=== PATIENT | female | born 1935 | race Caucasian/White ===

== ENCOUNTER 2016-07-24 17:23 | Inpatient (IN) | payer MEDICARE, OTHER ==
--- NOTE | ~2016-07-24 | DS ---
Discharge Summary [facility] [address] [place]. [address] NAME: RANDA FONSECA : 35 STATUS : DIS IN PAT#: [id number] AGE: 81 ADM/REG DATE : 07/25/16 MR#: [id number] REPORT SERV DATE: 07/31/16 DICTATED BY: ZAIDA ALICEA DATE: 07/30/16 REPORT STATUS : Draft TRANSCRIBED BY: MODL DATE: 07/30/16 ADMISSION DATE: 07/25/2016 DISCHARGE DATE: 07/30/2016 PRINCIPAL DIAGNOSES: Unintentional chronic opioid overdose with chronic encephalopathy, adult failure to thrive in the setting of intractable chronic neck and back pain due to old compression fractures, also atrial fibrillation and urinary tract infection. HISTORY OF PRESENT ILLNESS: Please see Dr. Champagne's dictation from 07/24/2016. HOSPITAL COURSE: Admitted with a concern for stroke due to diminished level of consciousness. A CT had been negative. It was clear however the patient had not had a stroke as she was seen shortly after receiving narcotics, and she was found to be severely hypotensive with blood pressure in the 60s, pinpoint pupils, and a nonlateralizing exam. The patient received volume resuscitation. She did not require Narcan; however, it was clear she was unable to tolerate the current doses of her medications which were reduced, but resulted in severe pain. In neither case, was she able to eat very much food and delirium from pain would alternate from delirium from obtundation. She was seen by doctor, so efforts were made for nonopioid pain relief with things as Toradol, baclofen, these were also unsuccessful. The baclofen moreover did also make her very confused. She was seen by Dr. Bunn to try to find a happy medium pain control, this was not able to be accomplished. Long discussions were held with the family regarding expectations of care as she had already developed bed-bound status and extreme weight loss, it was felt that her prognosis was very poor. In any event, while efforts were made to titrate her dementia medications, adding Namenda and adding antidepressant, this was felt also to be too little, too late, and arrangements were made to transition her to home hospice with [facility], they accepted her into their program and she was released on 07/30/2016 in stable condition with diet as tolerated and activity as tolerated under the care of her family members with the following medications: Claritin, Zoloft, Benadryl, baclofen only 2.5 mg q.h.s., Aricept 10 mg q.h.s., Lyrica 50 mg q.h.s., Megace 400 mg daily, Namenda 10 mg daily, Percocet 2.5 mg one to two, Eliquis 2.5 mg b.i.d., Protonix, Macrobid had been completed. She will follow up with the physicians at [facility] on a p.r.n. basis. Greater than 30 minutes were spent in the care of this patient and discharge planning on discharge day. DEL/ANNA Zaida Alicea M.D. / [id number] CC: Discharge Summary [address] [address] NAME: RANDA FONSECA : 35 STATUS : DIS IN PAT#: [id number] AGE: 81 ADM/REG DATE : 07/25/16 MR#: [id number] REPORT SERV DATE: 07/31/16 DICTATED BY: ZAIDA ALICEA DATE: 07/30/16 REPORT STATUS : Draft TRANSCRIBED BY: ANNA DATE: 07/30/16 Zaida Alicea M.D. [facility]
--- NOTE | ~2016-07-24 | HP ---
History And Physical [place] [id number] [facility] [place]. [address] NAME: RANDA FONSECA : 35 STATUS : ADM IN [facility]#: [id number] AGE: 81 ADM/REG DATE : 07/25/16 MR#: [id number] REPORT SERV DATE: 07/25/16 DICTATED BY: RADHA SAENZ DATE: 07/25/16 REPORT STATUS : Draft TRANSCRIBED BY: MODAysha DATE: 07/25/16 DATE OF ADMISSION: 07/25/2016 CHIEF COMPLAINT: Weakness with decreased response x48 hours. HISTORY OF PRESENT ILLNESS: The patient is an 81-year-old female with chronic pain on chronic narcotics, recent admission for acute encephalopathy with UTI and what appears to be new diagnosis of atrial fibrillation, questionable heart failure, and additionally history of dementia and chronic debility, who presents today after having confusion, decreased responsiveness, and weakness over the last 24 to 48 hours. The patient is accompanied by two daughters at bedside, who reports that symptoms have been constant, moderate to severe, although the patient does respond to simple questioning. Is denying any pain or radiating symptoms. No chest pain, but has been having grossly weakness like all her energy has been zapped out. Denies any acute stroke-type symptoms per family. No asymmetric weakness, fever, chills, diarrhea, or shortness of breath. No nausea, vomiting, but has had decreased p.o. intake. The patient was reported to have new start of morphine by mouth, but this has been intermittently given by daughters for breakthrough pain and additionally has had decreased changes in p.o. medications. There are no worsening or relieving symptoms. Symptoms are still currently present and reproducible. REVIEW OF SYSTEMS: GENERAL: Noted for weakness, but no fever or chills. EYES: No visual changes or pain. ENT: No sore throat or congestion reported. NEURO: Does have mental status kind of changes and headaches. SKIN: No rashes or bruising. RESPIRATORY: No shortness of breath or cough. CV: Does have irregular rhythm. No chest pain. GI: No nausea or vomiting. : No current dysuria or hematuria. MUSCULOSKELETAL: Does have myalgias and arthralgias. ENDO: Increased fatigue. No polyuria. HEME: No bleeding or bruising. IMMUNOLOGIC: No rhinorrhea. PSYCH: No anxiety. Mild confusion. PAST MEDICAL HISTORY: Recent diagnosis of atrial fibrillation, history of questionable lymphoma not treated, history of hypertension, dementia, E coli, previously ESBL, most recently non ESBL, additional reflux, chronic pain. SURGERIES: Cholecystectomy, , and hysterectomy. ALLERGIES: CODEINE. FAMILY HISTORY: CHF, stroke, and endometrial cancer. History And Physical [address] [place]. [address] NAME: RANDA FONSECA : 35 STATUS : ADM IN [facility]#: [id number] AGE: 81 ADM/REG DATE : 07/25/16 MR#: [id number] REPORT SERV DATE: 07/25/16 DICTATED BY: RADHA SAENZ DATE: 07/25/16 REPORT STATUS : Draft TRANSCRIBED BY: ANNA DATE: 07/25/16 SOCIAL HISTORY: . Lives with daughter. Never smoked. No alcohol and no illicits. On chronic pain medications. EKG: Atrial fibrillation, rate of 87, QTc 493. HOME MEDICATIONS: Amlodipine, Halfpirin, Coreg, Aricept, Lasix, Prinivil, MS Contin, multivitamin liquid, Percocet, Klor-Con, and Lyrica. PHYSICAL EXAMINATION: VITAL SIGNS: Blood pressure 109/85 to 123/72, temperature 97.2, pulse 90, respirations 20, O2 saturations 97%. GENERAL: Elderly, frail. Mild temporal wasting. EYES: No scleral icterus, but does have right-sided asymmetric pupils to left, although both are reactive, right greater than left. ENT: Nares patent. Tongue midline. Dry mucous membranes. RESPIRATORY: Does have mild rhonchi in lower lung holland bilaterally. Decreased lung sounds. CV: Irregularly irregular. No pedal edema. No JVD. GI: Soft, nontender, nondistended. : Deferred. MUSCULOSKELETAL: Does move extremities, but does have muscle atrophy diffusely. SKIN: Pale. Mild tenting. LYMPH: No cervical or supraclavicular lymphadenopathy. HEME: No bleeding or bruising. NEURO: Alert to person, situation. Was initially nonverbal, but able to follow commands. Symmetrical strength in hands, but grossly weak. Gait not tested. Tongue midline. Symmetrical smile. Does have asymmetric pupils, right greater than left. Normal wrinkled brow. Normal vocal nino, but weak. PSYCH: Appropriate mood and affect. IMAGING: ABG initially presented pH 7.49, pCO2 of 40, PO2 of 87, bicarb 29.2. Urinalysis, large leukocyte esterase with wbc of 19. Portable chest, small right greater than left bilateral pleural effusions with present bibasilar atelectasis. Sodium 130, potassium 4.5, chloride 89, BUN and creatinine 7 and 0.65, CO2 of 32, calcium 9.5, glucose 103. LFTs within normal limits. Alkaline phosphatase 192, albumin 2.5. Troponin negative. BNP 161.3. WBC count 10.1, H and H 11.9 and 36.3, MCV 87.5, platelets 395. INR 1.1. CTA chest, negative PE. Subtle ground-glass opacities suggesting mild interstitial edema. Mild cardiomegaly. Mild fusiform aneurysmal changes. Thoracic aorta, ascending, 3.4 cm diameter. Subsegmental atelectasis, right middle lobe. Multisegment atelectasis, right middle lobe and left lower left lobe. Moderate left pleural effusion. Absent appearing spleen. Multilevel chronic-appearing insufficiencies. CT head done in the emergency room, no acute intracranial hemorrhage or mass effect. Intracranial arterial vascular calcifications are seen. Chronic atrophic changes and chronic micro ischemic white matter changes are seen. Small old infarct is noted in the right basal ganglia. No definite evidence of acute major vascular territory seen at this time, although early cerebral infarct may be CT oculate in the first 12 to 24 hours. Moderate amount of dependent fluid is noted in the right maxillary sinus and left sphenoid sinus most likely related to the History And Physical [address] [address] NAME: RANDA FONSECA : 35 STATUS : ADM IN PAT#: [id number] AGE: 81 ADM/REG DATE : 07/25/16 MR#: [id number] REPORT SERV DATE: 07/25/16 DICTATED BY: RADHA SAENZ DATE: 07/25/16 REPORT STATUS : Draft TRANSCRIBED BY: ANNA DATE: 07/25/16 areas of acute sinusitis. There is complete opacification of the right frontal sinus and almost complete opacification of the right ethmoid sinus air cells, which is almost likely related to sinusitis. ASSESSMENT AND PLAN: 1. Acute encephalopathy. 2. Recurrent urinary tract infections. 3. Protein-calorie malnutrition. 4. Chronic pain and narcotic dependence. 5. Recurrent hyponatremia. 6. Questionable congestive heart failure. 7. Hypertension. 8. Atelectasis. 9. Mild hypomagnesemia. 10.Atrial fibrillation. PLAN: 1. For acute encephalopathy, recurrent UTI history, hyponatremia, does have asymmetric pupils, CT ordered stat in the emergency room. No acute findings. However, we will run TIA-type protocol, although no additional acute findings. Encephalopathy appears to be slightly improving. Tongue midline. Symmetrical smile. Does have equal brow. Arm strength although grossly weak. We will initiate TIA non tPA protocol. Symptoms of weakness have been occurring for the last 48 hours, although this is likely secondary to possible UTI and mild electrolyte abnormality. We will have MRI and carotid ultrasound also completed. We will defer Neurology consult to a.m. team pending a.m. results. 2. Recurrent UTIs. Prior cultures noted for E coli, ESBL initially and repeat negative. Does have encephalopathy with hyponatremia. We will start Rocephin with normal wbc count. This is noted different than prior, but does have decreased urine output. The patient was given Lasix in the emergency room due to clinical findings of mild rales and atelectasis, but is also clinically volume depleted intravascularly with tenting and dry mucous membranes. We will need a delicate balance of fluids and close monitoring of urine output. 3. Protein-calorie malnutrition. Ensure with meals as long as passes swallow study for TIA protocol. 4. Chronic pain, narcotic dependence. Holding morphine. Discussed even discontinuation, as the patient recently started. Family has been given slightly p.r.n. instead of scheduled for breakthrough pain. 5. Repeat hyponatremia. Hold Lasix. Gentle IV fluids. Follow volume balance and treat UTI. 6. CHF. Recent increase in Lasix. BNP was noted at 700+ in clinic, is down to 161. However, no echo noted. No actual confirmation of this. We will order echo and carotid ultrasound for completeness and diagnosis of CHF. 7. Hypertension, on LILIANA inhibitor and CCB. Hold CCB. 8. Atelectasis. Negative PE. CT PE protocol ordered. Was reported to have elevated D- dimer in the emergency room. 9. Mild hypomagnesemia. Replace. History And Physical [facility] [address] [place]. [address] NAME: RANDA FONSECA : 35 STATUS : ADM IN PAT#: [id number] AGE: 81 ADM/REG DATE : 07/25/16 MR#: [id number] REPORT SERV DATE: 07/25/16 DICTATED BY: RADHA SAENZ DATE: 07/25/16 REPORT STATUS : Draft TRANSCRIBED BY: MODL DATE: 07/25/[address] Current CHADS-VASc is 4. If CHF confirmed, it will be 5. We will need to discuss anticoagulation additionally with new findings of likely positive CT with prior stroke history. Could be as high as [address] CHADS-VASc score. CT results have been discussed with the patient and family understanding plan and agreeable to current treatment. SALENAN/ANNA Radha Saenz MD / [id number] CC: Landen Agarwal M.D.
--- NOTE | ~2016-07-24 | CN ---
Consultation Report [facility] [address] [place]. [address] NAME: RANDA JOE : 35 STATUS : ADM IN PAT#: [id number] AGE: 81 ADM/REG DATE : 07/25/16 MR#: [id number] REPORT SERV DATE: 07/25/16 DICTATED BY: YOLETTE BUNN DATE: 07/25/16 REPORT STATUS : Draft TRANSCRIBED BY: MODL DATE: 07/25/16 PALLIATIVE CARE CONSULTATION DATE OF CONSULTATION: 07/25/2016 HISTORY OF PRESENT ILLNESS: Randa is an 81-year-old lady who was here a little while ago with encephalopathy and mental status changes, felt to be due to an ESBL urinary tract infection. She at that time was treated appropriately and discharged home, although her appetite at that time was somewhat limited. On admission now, she appears to be in atrial fibrillation with PVCs and/or aberrancies, impaired mental status, and was felt by Dr. Agarwal to be on the verge of a narcotic- induced arrest. The family reports that when you ask the patient who has a history of dementia and chronic debility if she has pain, she typically denies it; however, she asks for pain medications on a chronic basis due to her problems as listed below. We were asked to see her with regard to supportive outpatient management and care as well as establishment of goals of care. 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 She has not had surgical intervention for that. PAST SURGICAL HISTORY: Include a cholecystectomy, C-sections, hysterectomy, and bladder repair/bladder suspension surgery. ALLERGIES: LISTED CODEINE. PLEASE NOTE FOR THE RECORD THE FAMILY BASED UPON PREVIOUS EXPERIENCE WITH HOSPICE ON THEIR FATHER ARE EXTREMELY ADVERSE TO THE USE OF MORPHINE. THE PATIENT WAS RECENTLY PLACED ON LONG-ACTING MORPHINE, WHICH THEY BELIEVE IS THE REASON WHY SHE IS NOW ADMITTED. FAMILY HISTORY: Includes congestive heart failure, strokes, and endometrial cancer. SOCIAL HISTORY: She is . She lives with one of four daughters. Nonsmoker. Nondrinker. No illicit drugs, and she has been on pain medications for over three decades. The patient has been diagnosed with dementia, and in fact, the addition of Aricept was responsible for a significant improvement in both cognition and behavior. REVIEW OF SYSTEMS: Includes weight loss; poor appetite, which is somewhat labile; decreasing hearing; urinary incontinence, which is positional and that the patient tries to get up and actually urinates at that point. She has had some fecal incontinence issues as well. She has ongoing muscle Consultation Report [place] [address] [place]. [address] NAME: RANDA JOE : 35 STATUS : ADM IN PAT#: [id number] AGE: 81 ADM/REG DATE : 07/25/16 MR#: [id number] REPORT SERV DATE: 07/25/16 DICTATED BY: YOLETTE BUNN DATE: 07/25/16 REPORT STATUS : Draft TRANSCRIBED BY: ANNA DATE: 07/25/16 pain, back pain, neck pain, and some complaints of headaches. She has memory problems and some cognition issues, although she is interactive with her family when she is feeling well and in fact has been seen laughing and joking with them in the not too distant past. Goals and desires include improve quality of life, more alertness, and improved appetite. She is currently full code. PHYSICAL EXAMINATION: Today shows an easily arousable but lady who doses off to sleep intermittently. VITAL SIGNS: Her blood pressure is 99/57, pulse is 62, and at this point on the monitor, she appears to be in sinus rhythm, although she does have documented atrial fibrillation episodes. The patient does not really answering questions at this time. On 3 L of oxygen, her pulse ox is 96%, her BMI is 16.7, and respiratory rate 16 and not labored, although one daughter notes that she does have some apnea periods. GENERAL: We have a drowsy thin arousable lady who is lying in bed. HEENT: She appears to be somewhat hard of hearing and her daughters do raise their voice in order to get her to turn to their name to the voice. The patient does do this. Her pupils are equal, 4 mm, and sluggish. HEART: Shows a regular rate and rhythm with what looks like some ectopy. She has a 2 to 3 over 6 systolic ejection murmur, which is not new. LUNGS: Clear, not labored, with good expansion. GASTROINTESTINAL: Bowel sounds are present. Nontender diarrheal stools x1 today. A Jane catheter is in place here, but not at home. EXTREMITIES: She evidently moves all of her extremities sluggishly, but does do so. NEUROLOGIC: She does follow some commands but not in a consistent fashion. She is oriented x2 while awake, and she does interact with her family intermittently. PSYCHIATRIC: Affect unable to be assessed. SKIN: Intact grossly. No obvious rashes, breakdown, or decubitus are identified. IMPRESSION, PLAN, AND DISCUSSION: Mrs. Joe is an 81-year-old lady with chronic long-term pain issues, who has been under pain management for six or seven years, the medications may not be keeping up with her progressive other symptoms in terms of her dementia and other issues. She is bedridden for the most part, which is complicating her pain management. The family was questioned as to their desires and goals, and they appeared to be fairly well aligned and congruent in that her quality of life is the primary goal. I have begun to introduce the concept of resuscitation questions. In addition, we will plan on seeing her in the office for outpatient followup, but I am going to begin her on a low dose of baclofen as I think that some of her problems may in fact be muscle spasm and I am hoping to get a little bit less sedation them with narcotics. I have explained the importance of only making one medication change at a time to the family and they are agreeable to pursuing this. We appreciate the opportunity to see the patient in consultation. A total of 85 minutes was Consultation Report [address] [place]. [address] NAME: RANDA JOE : 35 STATUS : ADM IN [facility]#: [id number] AGE: 81 ADM/REG DATE : 07/25/16 MR#: [id number] REPORT SERV DATE: 07/25/16 DICTATED BY: YOLETTE BUNN DATE: 07/25/16 REPORT STATUS : Draft TRANSCRIBED BY: ANNA DATE: 07/25/16 spent between the patient's review, second interview with the family, and chart review and preparation of this report. GABRIELLE/ANNA Yolette Bunn M.D. / [id number] CC: Landen Agarwal M.D. UNKNOWN
[2016-07-24 17:10] LABS: BE (BASE EXCESS) 5.5 MEQ/L (0 +/- 2.5); CARBOXYHEMOGLOBIN 1.7 % (0-3); HCO3 (ACTUAL BICARBONATE) 29.2 MEQ/L (23-27); HEMOBLOGIN CONTENT 13.2 G/DL (12-16); INSTRUMENT SERIAL # 8087; METHEMOGLOBIN 0.2 % (0-3); O2 CONTENT 17.7 VOL% (18-24); OPERATOR ID 14335; PCO2 (CO2 TENSION) 40 MMHG (35-45); PO2 (O2 TENSION) 87 MMHG (79-93); SAMPLE Arterial; pH 7.49 (7.37-7.43)
[2016-07-24 17:11] LABS: ALLENS TEST Pos
[2016-07-24 17:11] LABS: BASOPHILS 0.7 %; BASOPHILS ABSOLUTE 0.07 10/3/uL (0.0-0.16); EOSINOPHILS 7.6 %; EOSINOPHILS ABSOLUTE 0.77 10/3/uL (0.0-0.53); ER CBC TAT 0 Hrs 07 Mins; HEMATOCRIT 36.3 % (36.0-48.0); HEMOGLOBIN 11.9 g/dL (12.0-16.0); IMMATURE GRANULOCYTES 0.3 %; IMMATURE GRANULOCYTES ABSOLUTE 0.03 10/3/uL (0.0-0.11); LYMPHOCYTES 16.2 %; LYMPHOCYTES ABSOLUTE 1.63 10/3/uL (0.67-4.30); MANUAL DIFF NO %; MEAN CORPUS HGB CONC 32.8 g/dL (32.0-36.0); MEAN CORPUSCULAR HEMOGLOB 28.7 pg (26.0-34.0); MEAN CORPUSCULAR VOLUME 87.5 fL (80-100); MEAN PLATELET VOLUME 9.7 fL (9.2-13.0); MONOCYTES 12.8 %; MONOCYTES ABSOLUTE 1.29 10/3/uL (0.21-1.20); NEUTROPHILS 62.4 %; NEUTROPHILS ABSOLUTE 6.29 10/3/uL (2.02-8.40); PLATELET COUNT 395 10/3/uL (150-400); RBC DISTRIBUTION WIDTH 16.4 % (12.0-16.0); RED CELL COUNT 4.15 10/6/uL (4.0-5.6); WHITE BLOOD CELLS 10.1 10/3/uL (4.5-10.5)
[2016-07-24 17:13] LABS: ASCORBIC ACID (UR NOT ORDER) NEG (NEG); BILIRUBIN, URINE NEGATIVE (NEG); ER URINALYSIS TAT 0 Hrs 09 Mins; KETONE, URINE NEGATIVE (NEG); LEUKOCYTE ESTERASE(NOT OR LARGE (NEG); WBC (NOT ORDERED) (RFLEX) 19 (0-5)
[2016-07-24 17:14] LABS: NITRITE (URINE) NEG (NEG)
[~2016-07-24 17:23] MED LIST: AMIT100 PO; ARICEPT10 PO; ASAB PO; CEFT5 PO; DURA75 TOP; HALF81 PO; I40 PO; LOTREL1 CAP PO; LYRICA50 PO; MOBIC15 MG PO; NEUR100 PO; NEXIUM20 M1 PO; PEP20 PO; PERCOCET1 TA4 PO; PREM45 PO; PRIN10 PO; PRIN20 PO; SEPTRA1 TAB PO; VITAMIN D1000 UNI1; VITAMIN D31000 UNIT PO
[2016-07-24 17:29] LABS: ALBUMIN 2.5 G/DL (3.5-5.0); BUN (BLOOD UREA NITROGEN) 7 MG/DL (6-23); CHEST PAIN PROFILE TAT 0 Hrs 25 Mins; CREATININE 0.65 MG/DL (0.55-1.02); GFR AFRICAN AMERICAN 97 ML/MIN (>=60); GFR NON AFRICAN AMERICAN 83 ML/MIN (>=60); GLUCOSE, SERUM 103 MG/DL (60-99); SGPT(ALT) 12 U/L (5-65); SODIUM, SERUM 130 MMOL/L (135-148); TOTAL BILIRUBIN 0.4 MG/DL (0-1.2); TOTAL PROTEIN 7.4 G/DL (6.0-8.5); TROPONIN I 0.02 NG/ML (<0.05)
[2016-07-24 17:31] LABS: ALKALINE PHOSPHATASE 192 U/L (45-117); CALCIUM, SERUM 9.5 MG/DL (8.5-10.4); CHLORIDE, SERUM 89 MMOL/L (96-112); CO2 (CARBON DIOXIDE) 32 MMOL/L (24-34); DIRECT BILIRUBIN < 0.1 MG/DL (0.0-0.4); INDIRECT BILIRUBIN(NOT ORDER) 0.3 MG/DL (0.1-0.9); POTASSIUM, SERUM 4.5 MMOL/L (3.5-5.3); SGOT(AST) 28 U/L (5-40)
[2016-07-24] MEDS ORDERED: HALF81 PO (17:38)
[2016-07-24] MEDS ORDERED: LYRICA50 PO (17:39)
[2016-07-24] MEDS ORDERED: PERCOCET 10/3251 TAB PO (17:39)
[2016-07-24] MEDS ORDERED: KLOR-CON 1010 MEQ PO (17:39)
[2016-07-24] MEDS ORDERED: ARICEPT10 PO (17:39)
[2016-07-24] MEDS ORDERED: NORV25 PO (17:39)
[2016-07-24] MEDS ORDERED: COREG3 PO (17:40)
[2016-07-24] MEDS ORDERED: PRIN20 PO (17:40)
[2016-07-24] MEDS ORDERED: L20 PO (17:41)
[2016-07-24] MEDS ORDERED: MSCONT15 PO (17:42)
[2016-07-24] MEDS ORDERED: ELDERTONIC PO (17:42)
[2016-07-24 18:22] LABS: INTERNATIONAL NORMAL RATI 1.1 UNITS (-); PARTIAL THROMBO TIME 25.9 SEC (22.5-37.2); PROTIME (NOT ORD) 13.9 SEC (12.0-14.5)
[2016-07-24 18:25] LABS: D-DIMER QUANTITATIVE 1.76 ug/mLFEU (< 0.50)
[2016-07-25 04:11] LABS: BASOPHILS 0.3 %; BASOPHILS ABSOLUTE 0.03 10/3/uL (0.0-0.16); EOSINOPHILS 0.5 %; EOSINOPHILS ABSOLUTE 0.06 10/3/uL (0.0-0.53); HEMOGLOBIN 13.2 g/dL (12.0-16.0); IMMATURE GRANULOCYTES 0.3 %; IMMATURE GRANULOCYTES ABSOLUTE 0.03 10/3/uL (0.0-0.11); LYMPHOCYTES 11.8 %; LYMPHOCYTES ABSOLUTE 1.42 10/3/uL (0.67-4.30); MEAN CORPUS HGB CONC 32.6 g/dL (32.0-36.0); MEAN CORPUSCULAR HEMOGLOB 28.5 pg (26.0-34.0); MEAN CORPUSCULAR VOLUME 87.5 fL (80-100); MEAN PLATELET VOLUME 9.7 fL (9.2-13.0); MONOCYTES 11.4 %; MONOCYTES ABSOLUTE 1.37 10/3/uL (0.21-1.20); NEUTROPHILS 75.7 %; NEUTROPHILS ABSOLUTE 9.08 10/3/uL (2.02-8.40); PLATELET COUNT 456 10/3/uL (150-400); RBC DISTRIBUTION WIDTH 15.9 % (12.0-16.0); RED CELL COUNT 4.63 10/6/uL (4.0-5.6)
[2016-07-25 04:12] LABS: HEMATOCRIT 40.5 % (36.0-48.0); MANUAL DIFF NO %
[2016-07-25 04:18] LABS: INTERNATIONAL NORMAL RATI 1.1 UNITS (-); PARTIAL THROMBO TIME 25.8 SEC (22.5-37.2); PROTIME (NOT ORD) 13.8 SEC (12.0-14.5)
[2016-07-25 06:11] LABS: A/G RATIO 0.5 (0.7-1.9); ALBUMIN 2.1 G/DL (3.5-5.0); CALCIUM, SERUM 9.1 MG/DL (8.5-10.4); CHLORIDE, SERUM 87 MMOL/L (96-112); CO2 (CARBON DIOXIDE) 34 MMOL/L (24-34); CPK 17 U/L (0-200); CREATININE 0.71 MG/DL (0.55-1.02); GFR AFRICAN AMERICAN 93 ML/MIN (>=60); GFR NON AFRICAN AMERICAN 80 ML/MIN (>=60); GLOBULIN 4.1 G/DL (2.5-4.1); HDL CHOLESTEROL 23 MG/DL (> 49); PHOSPHORUS, SERUM 4.5 MG/DL (2.5-4.5); POTASSIUM, SERUM 3.9 MMOL/L (3.5-5.3); SGOT(AST) 14 U/L (5-40); SGPT(ALT) 7 U/L (5-65); SODIUM, SERUM 129 MMOL/L (135-148); TOTAL BILIRUBIN 0.3 MG/DL (0-1.2); TOTAL PROTEIN 6.2 G/DL (6.0-8.5); TROPONIN I 0.02 NG/ML (<0.05)
[2016-07-25 06:13] LABS: ALKALINE PHOSPHATASE 158 U/L (45-117); BUN (BLOOD UREA NITROGEN) 11 MG/DL (6-23); CHOL/HDL RATIO(NOT ORDER) 5.3 (0-5); CHOLESTEROL 122 MG/DL (< 200); CK-MB 0.8 NG/ML; FOLATE 5.2 NG/ML (>5.2); GLUCOSE, SERUM 131 MG/DL (60-99); LDL CHOLESTEROL 78 MG/DL (< 130); NON-HDL CHOLESTEROL 99 MG/DL (< 160); TRIGLYCERIDE 109 MG/DL (< 150)
[2016-07-25 06:56] LABS: PROCALCITONIN 0.08 ng/mL (<0.5)
[2016-07-25 11:27] LABS: GLYCOHEMOGLOBIN (HbA1c) 6.1 % (4.7-6.1)
[2016-07-25 13:39] LABS: CPK 18 U/L (0-200); TROPONIN I 0.02 NG/ML (<0.05)
[2016-07-25 13:40] LABS: CK-MB 1.1 NG/ML
[2016-07-25 21:22] LABS: CPK 27 U/L (0-200); TROPONIN I 0.02 NG/ML (<0.05)
[2016-07-25 21:23] LABS: CK-MB 1.4 NG/ML
[2016-07-26 06:51] LABS: CALCIUM, SERUM 8.9 MG/DL (8.5-10.4); CHLORIDE, SERUM 96 MMOL/L (96-112); CO2 (CARBON DIOXIDE) 33 MMOL/L (24-34); CREATININE 0.58 MG/DL (0.55-1.02); GFR AFRICAN AMERICAN 100 ML/MIN (>=60); GFR NON AFRICAN AMERICAN 86 ML/MIN (>=60); POTASSIUM, SERUM 3.5 MMOL/L (3.5-5.3); SODIUM, SERUM 135 MMOL/L (135-148)
[2016-07-26 06:52] LABS: BUN (BLOOD UREA NITROGEN) 7 MG/DL (6-23); GLUCOSE, SERUM 100 MG/DL (60-99)
[2016-07-27 08:42] LABS: ALLENS TEST Pos; CARBOXYHEMOGLOBIN 1.2 % (0-3); DEVICE NC; HCO3 (ACTUAL BICARBONATE) 26.8 MEQ/L (23-27); INSTRUMENT SERIAL # 8083; METHEMOGLOBIN 0.2 % (0-3); O2 CONTENT 17.6 VOL% (18-24); PCO2 (CO2 TENSION) 31 MMHG (35-45); PO2 (O2 TENSION) 87 MMHG (79-93); SAMPLE Arterial; pH 7.56 (7.37-7.43)
[2016-07-30 05:25] LABS: BASOPHILS 0.6 %; BASOPHILS ABSOLUTE 0.07 10/3/uL (0.0-0.16); EOSINOPHILS 3.6 %; EOSINOPHILS ABSOLUTE 0.46 10/3/uL (0.0-0.53); HEMOGLOBIN 11.7 g/dL (12.0-16.0); IMMATURE GRANULOCYTES 0.3 %; IMMATURE GRANULOCYTES ABSOLUTE 0.04 10/3/uL (0.0-0.11); LYMPHOCYTES 14.6 %; LYMPHOCYTES ABSOLUTE 1.85 10/3/uL (0.67-4.30); MEAN CORPUS HGB CONC 32.6 g/dL (32.0-36.0); MEAN CORPUSCULAR HEMOGLOB 28.3 pg (26.0-34.0); MEAN CORPUSCULAR VOLUME 86.7 fL (80-100); MEAN PLATELET VOLUME 10.5 fL (9.2-13.0); MONOCYTES 11.4 %; MONOCYTES ABSOLUTE 1.44 10/3/uL (0.21-1.20); NEUTROPHILS 69.5 %; NEUTROPHILS ABSOLUTE 8.77 10/3/uL (2.02-8.40); PLATELET COUNT 432 10/3/uL (150-400); RBC DISTRIBUTION WIDTH 16.4 % (12.0-16.0); RED CELL COUNT 4.14 10/6/uL (4.0-5.6); WHITE BLOOD CELLS 12.6 10/3/uL (4.5-10.5)
[2016-07-30 05:27] LABS: HEMATOCRIT 35.9 % (36.0-48.0); MANUAL DIFF NO %
== END 2016-07-30 16:18 | disposition hospice, home (50) | DRG 917 ==
LOC: ER 17:23 → 1SO 07-25 00:12
PROVIDERS: Emergency Medicine; Internal Medicine
DX: T40.2X1A Poisoning by other opioids, accidental (unintentional), initial encounter (principal); G92 Toxic encephalopathy; J90 Pleural effusion, not elsewhere classified; I50.33 Acute on chronic diastolic (congestive) heart failure; E44.0 Moderate protein-calorie malnutrition; I95.9 Hypotension, unspecified; N39.0 Urinary tract infection, site not specified; I11.0 Hypertensive heart disease with heart failure; F03.90 Unspecified dementia, unspecified severity, without behavioral disturbance, psychotic disturbance, mood disturbance, and anxiety; E87.1 Hypo-osmolality and hyponatremia; J98.11 Atelectasis; Z68.1 Body mass index [BMI] 19.9 or less, adult; Z66 Do not resuscitate; Z51.5 Encounter for palliative care; E83.42 Hypomagnesemia; I49.3 Ventricular premature depolarization; B96.20 Unspecified Escherichia coli [E. coli] as the cause of diseases classified elsewhere; I48.91 Unspecified atrial fibrillation; M41.9 Scoliosis, unspecified; R62.7 Adult failure to thrive; G89.29 Other chronic pain; M54.2 Cervicalgia; M54.9 Dorsalgia, unspecified; R15.9 Full incontinence of feces; Z79.82 Long term (current) use of aspirin; Z79.891 Long term (current) use of opiate analgesic; Z79.899 Other long term (current) drug therapy; Z74.01 Bed confinement status; Z87.440 Personal history of urinary (tract) infections; Z88.5 Allergy status to narcotic agent
CPT/HCPCS: 36600; 70450; 71010; 71275; 80048; 80053; 80061; 80076; 81001; 82140; 82330; 82533; 82550; 82553; 82607; 82746; 82803; 82805; 82947; 82962; 83036; 83690; 83735; 83880; 84100; 84132; 84145; 84295; 84443; 84484; 85014; 85025; 85379; 85610; 85730; 87040; 87077; 87086; 87186; 92610-GN; 93005; 96374; 99285; A9270-GY; C8929; G8996-CJ-GN; G8997-CJ-GN; G8998-CJ-GN; J0360; J1885; J3475; Q9957; Q9967

== ENCOUNTER 2016-08-12 10:29 | Inpatient (IN) | payer MEDICARE, OTHER ==
--- NOTE | ~2016-08-12 | HP ---
History And Physical [id number] [facility] [place]. [address] NAME: RANDA JOE : 35 STATUS : DIS IN PAT#: [id number] AGE: 81 ADM/REG DATE : 08/12/16 MR#: [id number] REPORT SERV DATE: 08/30/16 DICTATED BY: RACH ORONA DATE: 08/12/16 REPORT STATUS : Draft TRANSCRIBED BY: MODL DATE: 08/12/16 DATE OF ADMISSION: 08/12/2016 TIME: 1100 hours. Seen in bed #7 at [facility]U. HISTORY OF PRESENT ILLNESS: Ms. Joe is an 81-year-old female with known advanced lung disease, who had major difficulties breathing last night and sit straight up in order to continue breathing. Her family brought her to the emergency room this morning where she required immediate intubation, mechanical ventilation despite being on hospice and DNR status. The patient now arrives. During her travel over to [facility] from [facility], she had a period of hypotension which was treated with saline bolus which corrected it. Currently, when she arrived, she had been sedated, chemically paralyzed on propofol and fentanyl. PAST MEDICAL HISTORY: Significant for history of atrial fibrillation. In the past, questionable history of non-Hodgkin lymphoma. She was treated once according to her family. History of hypertension, dementia, E. coli, previous ESBL, most recently E. coli ESBL, in addition to E.coli. She is status post cholecystectomy, , hysterectomy, splenectomy and multiple back fractures. ALLERGIES: SHE IS ALLERGIC TO CODEINE. FAMILY HISTORY: CHF, stroke, and endometrial cancer. HOME MEDICATIONS: Include OxyContin, aspirin, amlodipine, Coreg, Aricept, Lasix, Prinivil, MS Contin, multivitamin liquid, Lyrica, and Percocet. REVIEW OF SYSTEMS: Significant for as mentioned above as well as the onset of dementia thought to be Alzheimer's and a history of previous strokes in the past. PHYSICAL EXAMINATION: VITAL SIGNS: Currently, blood pressure is 154/71, pulse is 81 and irregular, afebrile, and orally intubated. HEENT: Head is normocephalic, thin-appearing female. NECK: Supple. Slight JVD. Orally intubated. CHEST: Decreased breath sounds. No rhonchi bilaterally. CARDIAC: S1 and S2. Irregular. PMI is displaced laterally. ABDOMEN: Scaphoid. Nontender. Multiple scars from previous surgeries. No organomegaly. EXTREMITIES: Slight cyanosis of knees. Pulses are palpable. Slight edema. NEUROLOGIC: Exam could not be tested at this point in time because she is still sedated and has chemical paralysis on board. Pupils are slightly equal and reactive. LABORATORY DATA: Lab data from the ER showed sodium 126, potassium 5.0, chloride 94, CO2 of 26, BUN 15, creatinine 0.6, total protein 5.3, albumin 2.4, alkaline phosphatase 129, ALT 10, AST 25, total bilirubin 0.4. Magnesium 1.5. H and H 10.5 and 32.9, white count 12,700, History And Physical [id number] [place]. [address] NAME: RANDA JOE : 35 STATUS : DIS IN PAT#: [id number] AGE: 81 ADM/REG DATE : 08/12/16 MR#: [id number] REPORT SERV DATE: 08/30/16 DICTATED BY: RACH ORONA DATE: 08/12/16 REPORT STATUS : Draft TRANSCRIBED BY: MODL DATE: 08/12/16 and platelet count 676,000. INR is 1.1. PTT 29. BNP 44. Blood gases show pH 7.29, pCO2 of 50, and pO2 of 278. Lactic acid 2.9. Chest x-ray is pending. EKG shows atrial fibrillation with slow ventricular rate. IMPRESSION: 1. Acute hypercapnic hypoxic respiratory failure. 2. Possible congestive heart failure. 3. Weight loss. 4. Chronic obstructive pulmonary disease, oxygen dependent. 5. Dementia. 6. Atrial fibrillation. 7. History of previous extended-spectrum beta-lactamase urinary tract infection. PLAN: We will discuss with her daughter. The patient wants to be resuscitated, but no chest compressions. Apparently, this is still open for discussion with the family. Would not be on prolonged life support. The plan will be to correct respiratory abnormalities in an attempt to wean the ventilator. Of note, the patient was here approximately 2 weeks ago for similar issues. FEDERICO/ANNA Rach Orona M.D. / [id number] CC: Rach Orona M.D. UNKNOWN
--- NOTE | ~2016-08-12 | IDS ---
Interim Discharge Summary [facility] [address] [place]. [address] NAME: RANDA FONSECA : 35 STATUS : ADM IN [facility]#: [id number] AGE: 81 ADM/REG DATE : 08/12/16 MR#: [id number] REPORT SERV DATE: 08/24/16 DICTATED BY: RACH KHAN DATE: 08/24/16 REPORT STATUS : Draft TRANSCRIBED BY: MODL DATE: 08/24/16 ADMISSION DATE: 08/12/2016 DISCHARGE DATE: DATE OF SUMMARY: 08/24/2016. The patient has COPD, advanced to hypoxic respiratory failure, probable ventilator- associated pneumonia. Previously had MRSA and Escherichia coli, ESBL pneumonia, atrial fibrillation and RVR, type 2 diabetes mellitus, chronic pain and dementia. Past medical history is significant for non-Hodgkin lymphoma. The patient was off antibiotics, doing well this morning, developed temperatures of 102 axillary, antibiotics restarted after cultures being done. The patient was unable to be weaned from the ventilator. Discussions with family regarding end of life issues. Currently, her laboratories show new infiltrates on chest x-ray. Electrolytes show sodium 145, potassium 3.2, chloride 112, CO2 of 26, BUN 33, creatinine 0.41, glucose was 50, this has been corrected. We will hold Levemir. Magnesium 2.4, phosphorus 2.0. CBC shows an H and H of 8.4 and 26.8, white count 19,700, with 82 polys, 5 bands, platelets 676,000. RP/MODL Rach Khan M.D. / [id number] CC: Sandy Zaidi BRADLEY K
--- NOTE | ~2016-08-12 | CN ---
Consultation Report [facility] [address] [facility] [place]. [address] NAME: RANDA JOE : 35 STATUS : ADM IN [facility]#: [id number] AGE: 81 ADM/REG DATE : 08/12/16 MR#: [id number] REPORT SERV DATE: 08/14/16 DICTATED BY: RUSTY DE LA CRUZ III DATE: 08/14/16 REPORT STATUS : Draft TRANSCRIBED BY: MODAysha DATE: 08/14/16 CONSULTATION DATE OF CONSULTATION: 08/13/2016 REASON FOR CONSULTATION: History of lymphoma. HISTORY OF PRESENT ILLNESS: Ms. Joe is an 81-year-old female with a history of lung disease and history of lymphoma who presented to the emergency room with shortness of breath and required immediate intubation and ventilation. She was admitted to medical ICU for further care and treatment for a healthcare associated pneumonia. It was noted that she has a history of lymphoma with records at [facility]. PAST MEDICAL HISTORY: 1. Atrial fibrillation. 2. History of non-Hodgkin lymphoma. 3. Hypertension. 4. Dementia. ALLERGIES: SHE IS ALLERGIC TO CODEINE. FAMILY HISTORY: Significant for CHF, stroke, and endometrial cancer. HOME MEDICATIONS: Her home medication list per the home med list was reviewed. REVIEW OF SYSTEMS: Unable to be obtained secondary to currently being intubated. PHYSICAL EXAMINATION: GENERAL: She is elderly, in no distress, sedated, and on the ventilator. CARDIOVASCULAR: Regular rate and rhythm with a murmur. There is no peripheral edema. LUNGS: With wheezes and crackles diffusely, vent support. ABDOMEN: Soft and nondistended without any hepatosplenomegaly. SKIN: Warm and dry with good skin turgor. There is no significant ecchymosis or petechiae. IMAGING: CT of her chest was reviewed. There are not any pathologically enlarged lymph nodes noted. ASSESSMENT AND PLAN: History of non-Hodgkin lymphoma. I did discuss with one of the oncologists at [facility]. 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 There was no record of any treatment being given at that time or any followup since then. Therefore, I doubt that this lymphoma will significantly impact her current prognosis especially given her recent CT findings of no significant mediastinal lymph node enlargement. Please call with any questions. Consultation Report [facility] [address] [place]. [address] NAME: RANDA JOE : 35 STATUS : ADM IN PAT#: [id number] AGE: 81 ADM/REG DATE : 08/12/16 MR#: [id number] REPORT SERV DATE: 08/14/16 DICTATED BY: RUSTY DE LA CRUZ III DATE: 08/14/16 REPORT STATUS : Draft TRANSCRIBED BY: MODL DATE: 08/14/16 [facility]/ANNA Rusty De La Cruz III, M.D. / [id number] CC: Sandy Zaidi BRADLEY K
--- NOTE | ~2016-08-12 | IDS ---
Interim Discharge Summary [facility] [address] [place]. [address] NAME: RANDA FONSECA : 35 STATUS : ADM IN PAT#: [id number] AGE: 81 ADM/REG DATE : 08/12/16 MR#: [id number] REPORT SERV DATE: 08/17/16 DICTATED BY: HARI RAYMUNDO DATE: 08/17/16 REPORT STATUS : Draft TRANSCRIBED BY: MODAysha DATE: 08/17/16 ADMISSION DATE: 08/12/2016 DISCHARGE DATE: INTERIM DIAGNOSES: 1. Acute hypoxic respiratory failure. 2. methicillin-resistant Staphylococcus aureus, and Extended-Spectrum Beta-Lactamase Escherichia coli pneumonia. 3. Hypoalbuminemia. 4. History of lymphoma. 5. Atrial fibrillation, rate controlled. 6. Previous urinary tract infection. 7. Dementia. 8. Mild aortic stenosis, and mild aortic regurgitation, with normal ejection fraction. 9. Funguria. DESCRIPTION: The patient was admitted on 08/12/2016. This is her third hospitalization since the end of May of this year. She has history of dementia, non-Hodgkin's lymphoma, previous UTI, hypertension, and atrial fibrillation. The patient was admitted for shortness of breath and required intubation in our emergency room on 08/12/2016. She has been on mechanical ventilation ever since then. It appears that the patient developed pneumonia which grew out ESBL E coli and MRSA on her sputum cultures. Her blood cultures today are unremarkable. She is on vancomycin and Merrem. She has been afebrile over the past 24 hours. She is currently on daily spontaneous breathing trials to work toward extubation. The family had said that someone told her, that is the patient, that she has heart failure. However, an echocardiogram that was done on 07/26/2016, shows normal ejection fraction of 60% to 65%, with normal chamber size of the left ventricle and right ventricle. She did have trivial valvular disease with mild aortic stenosis, with mild aortic regurgitation, and mild tricuspid regurgitation. She also has a history of lymphoma that she has not seen an oncologist in quite some time and the family was unsure who her doctor was. I did have Oncology come by just because of the question of the status of this. 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 It was decided that we can get her through this ICU admission and they can follow her as a new patient as an outpatient. She has been atrial fibrillation on this admission, but has been rate controlled without much issues. She is currently on some Precedex and fentanyl for sedation, which I had been lightening up to help with extubation. Family has been updated frequently on the patient's status. CEP/MODL Hari Raymundo DO Interim Discharge Summary [address] [address] NAME: RANDA FONSECA : 35 STATUS : ADM IN PAT#: [id number] AGE: 81 ADM/REG DATE : 08/12/16 MR#: [id number] REPORT SERV DATE: 08/17/16 DICTATED BY: HARI RAYMUNDO DATE: 08/17/16 REPORT STATUS : Draft TRANSCRIBED BY: MODL DATE: 08/17/16 / [id number] CC: Sandy Zaidi BRADLEY K
--- NOTE | ~2016-08-12 | DS ---
Discharge Summary [facility] [id number] [place]. [address] NAME: RANDA FONSECA : 35 STATUS : DIS IN PAT#: [id number] AGE: 81 ADM/REG DATE : 08/12/16 MR#: [id number] REPORT SERV DATE: 08/27/16 DICTATED BY: ZAIDA ALICEA DATE: 08/26/16 REPORT STATUS : Draft TRANSCRIBED BY: MODL DATE: 08/26/16 ADMISSION DATE: 08/12/2016 DISCHARGE DATE: 08/26/2016 PRINCIPAL DIAGNOSES: Acute respiratory failure with hypoxemia due to aspiration pneumonia to the right lower lobe due to extended-spectrum beta-lactamase Escherichia coli and methicillin-resistant Staphylococcus aureus, also history of dementia. HISTORY OF PRESENT ILLNESS: Please see H and P by the Critical Care Team, Dr. Tim Khan. HOSPITAL COURSE: Please see interim summary by Dr. Khan on 08/24/2016. Subsequent hospital course, the patient was transferred to the hospital floor and at 0700 hours on 08/26/2016. She was found to have no cranial nerve reflexes, apical upstroke, or carotid pulses, and in fact already had rigor mortis when she was pronounced. This was expected and the family was aware. She was released to [facility] [place]. DICTATED BY: Sandy Richter/ANNA Zaida Alicea M.D. / [id number] CC: Sandy Zaidi NP-C
[~2016-08-12 10:29] MED LIST changes: +COREG3 PO; +ELDERTONIC PO; +KLOR-CON 1010 MEQ PO; +L20 PO; +MSCONT15 PO; +NORV25 PO; +PERCOCET 10/3251 TAB PO
[2016-08-12 11:37] LABS: ALLENS TEST Pos; BE (BASE EXCESS) -4.5 MEQ/L (0 +/- 2.5); CARBOXYHEMOGLOBIN 0.9 % (0-3); HCO3 (ACTUAL BICARBONATE) 22.2 MEQ/L (23-27); HEMOBLOGIN CONTENT 11.5 G/DL (12-16); INSTRUMENT SERIAL # 8083; METHEMOGLOBIN 0.2 % (0-3); MODE CMV; O2 CONTENT 14.9 VOL% (18-24); PCO2 (CO2 TENSION) 48 MMHG (35-45); PO2 (O2 TENSION) 70 MMHG (79-93); SAMPLE Arterial; TIDAL VOLUME 400 ML; pH 7.29 (7.37-7.43)
[2016-08-12 12:38] LABS: BUN (BLOOD UREA NITROGEN) 12 MG/DL (6-23); CALCIUM, SERUM 8.9 MG/DL (8.5-10.4); CHLORIDE, SERUM 101 MMOL/L (96-112); CO2 (CARBON DIOXIDE) 23 MMOL/L (24-34); CREATININE 0.53 MG/DL (0.55-1.02); FREE T4 1.36 NG/DL (0.76-1.46); GFR AFRICAN AMERICAN 103 ML/MIN (>=60); GFR NON AFRICAN AMERICAN 89 ML/MIN (>=60); GLUCOSE, SERUM 118 MG/DL (60-99); POTASSIUM, SERUM 3.8 MMOL/L (3.5-5.3); SODIUM, SERUM 134 MMOL/L (135-148)
[2016-08-12 13:05] LABS: PROCALCITONIN 0.52 ng/mL (<0.5)
[2016-08-12] MEDS ORDERED: ENDOCET1 TA3 PO (15:34)
[2016-08-12] MEDS ORDERED: NORV25 PO (15:35)
[2016-08-12] MEDS ORDERED: COREG3 PO (15:35)
[2016-08-12] MEDS ORDERED: PRIN20 PO (15:35)
[2016-08-12] MEDS ORDERED: L20 PO (15:36)
[2016-08-12] MEDS ORDERED: LYRICA50 PO ×2 (15:36)
[2016-08-12] MEDS ORDERED: LEVSINTAB PO (15:37)
[2016-08-12] MEDS ORDERED: ARICEPT10 PO (15:37)
[2016-08-12] MEDS ORDERED: MORPHINE 20 MG/1 ML PO (15:39)
[2016-08-12] MEDS ORDERED: ASAB PO (15:39)
[2016-08-12] MEDS ORDERED: [UNRECOGNIZED DRUG - OTHER] (15:39)
[2016-08-12] MEDS ORDERED: KLOR-CON 1010 MEQ PO (15:39)
[2016-08-12] MEDS ORDERED: BEN25UDL PO (15:40)
[2016-08-12] MEDS ORDERED: PEP20 PO (15:41)
[2016-08-13 04:15] LABS: BASOPHILS 0.1 %; BASOPHILS ABSOLUTE 0.01 10/3/uL (0.0-0.16); EOSINOPHILS 0 %; HEMOGLOBIN 10.4 g/dL (12.0-16.0); IMMATURE GRANULOCYTES 0.5 %; IMMATURE GRANULOCYTES ABSOLUTE 0.05 10/3/uL (0.0-0.11); LYMPHOCYTES 6.7 %; MEAN CORPUS HGB CONC 33.1 g/dL (32.0-36.0); MEAN CORPUSCULAR HEMOGLOB 28.5 pg (26.0-34.0); MONOCYTES 7.8 %; MONOCYTES ABSOLUTE 0.82 10/3/uL (0.21-1.20); NEUTROPHILS 84.9 %; NEUTROPHILS ABSOLUTE 8.93 10/3/uL (2.02-8.40); PLATELET COUNT 442 10/3/uL (150-400); RBC DISTRIBUTION WIDTH 17.6 % (12.0-16.0); RED CELL COUNT 3.65 10/6/uL (4.0-5.6); WHITE BLOOD CELLS 10.5 10/3/uL (4.5-10.5)
[2016-08-13 04:16] LABS: HEMATOCRIT 31.4 % (36.0-48.0); MANUAL DIFF NO %
[2016-08-13 04:29] LABS: BUN (BLOOD UREA NITROGEN) 10 MG/DL (6-23); CALCIUM, SERUM 8.7 MG/DL (8.5-10.4); CHLORIDE, SERUM 102 MMOL/L (96-112); CO2 (CARBON DIOXIDE) 22 MMOL/L (24-34); CREATININE 0.56 MG/DL (0.55-1.02); GFR AFRICAN AMERICAN 101 ML/MIN (>=60); GFR NON AFRICAN AMERICAN 87 ML/MIN (>=60); GLUCOSE, SERUM 136 MG/DL (60-99); POTASSIUM, SERUM 3.7 MMOL/L (3.5-5.3); SODIUM, SERUM 134 MMOL/L (135-148)
[2016-08-13 04:32] LABS: HCO3 (ACTUAL BICARBONATE) 22.3 MEQ/L (23-27); INSTRUMENT SERIAL # 8083; PCO2 (CO2 TENSION) 32 MMHG (35-45); PO2 (O2 TENSION) 87 MMHG (79-93); pH 7.46 (7.37-7.43)
[2016-08-13 04:33] LABS: ALLENS TEST Pos; CARBOXYHEMOGLOBIN 0.6 % (0-3); HEMOBLOGIN CONTENT 10.6 G/DL (12-16); METHEMOGLOBIN 0.1 % (0-3); MODE CMV; O2 CONTENT 14.5 VOL% (18-24); OPERATOR ID 13415; SAMPLE Arterial; TIDAL VOLUME 500 ML
[2016-08-13 05:42] LABS: PHOSPHORUS, SERUM 2.1 MG/DL (2.5-4.5)
[2016-08-13 12:54] LABS: ASCORBIC ACID (UR NOT ORDER) NEG (NEG); BILIRUBIN, URINE NEGATIVE (NEG); KETONE, URINE NEGATIVE (NEG); LEUKOCYTE ESTERASE(NOT OR MOD (NEG); WBC (NOT ORDERED) (RFLEX) 13 (0-5)
[2016-08-14 04:36] LABS: HEMATOCRIT 28.9 % (36.0-48.0); HEMOGLOBIN 9.8 g/dL (12.0-16.0); MEAN CORPUS HGB CONC 33.9 g/dL (32.0-36.0); MEAN CORPUSCULAR HEMOGLOB 29.3 pg (26.0-34.0); MEAN CORPUSCULAR VOLUME 86.3 fL (80-100); MEAN PLATELET VOLUME 10.3 fL (9.2-13.0); PLATELET COUNT 332 10/3/uL (150-400); RBC DISTRIBUTION WIDTH 17.5 % (12.0-16.0); RED CELL COUNT 3.35 10/6/uL (4.0-5.6); WHITE BLOOD CELLS 10.6 10/3/uL (4.5-10.5)
[2016-08-14 04:37] LABS: MANUAL DIFF YES %
[2016-08-14 04:53] LABS: BUN (BLOOD UREA NITROGEN) 13 MG/DL (6-23); CALCIUM, SERUM 8.8 MG/DL (8.5-10.4); CHLORIDE, SERUM 106 MMOL/L (96-112); CO2 (CARBON DIOXIDE) 22 MMOL/L (24-34); CREATININE 0.49 MG/DL (0.55-1.02); GFR AFRICAN AMERICAN 106 ML/MIN (>=60); GFR NON AFRICAN AMERICAN 91 ML/MIN (>=60); PHOSPHORUS, SERUM 1.8 MG/DL (2.5-4.5); POTASSIUM, SERUM 3.8 MMOL/L (3.5-5.3); SODIUM, SERUM 139 MMOL/L (135-148)
[2016-08-14 04:56] LABS: GLUCOSE, SERUM 170 MG/DL (60-99)
[2016-08-14 04:59] LABS: BAND NEUTROPHILS 3 %; LYMPHOCYTES 11 %; LYMPHOCYTES ABSOLUTE (CALC) 1.17 10/3/uL (0.67-4.30); MONOCYTES 2 %; MONOCYTES ABSOLUTE (CALC) 0.21 10/3/uL (0.21-1.20); NEUTROPHILS ABSOLUTE (CALC) 9.22 10/3/uL (2.02-8.40); SEGMENTED NEUTROPHIL (0) 84 %; TOTAL NUCLEATED CELLS 100
[2016-08-14 05:00] LABS: ANISOCYTOSIS 1+ (5-10/OIF) (0-5/OIF); PLATELET ESTIMATE ADQ (ADEQUATE); POIKILOCYTOSIS 1+ (5-10/OIF) (0-5/OIF)
[2016-08-14 05:12] LABS: PROCALCITONIN 0.79 ng/mL (<0.5)
[2016-08-14 05:24] LABS: BE (BASE EXCESS) -1.4 MEQ/L (0 +/- 2.5); CARBOXYHEMOGLOBIN 0.7 % (0-3); HCO3 (ACTUAL BICARBONATE) 21.8 MEQ/L (23-27); INSTRUMENT SERIAL # 8083; PCO2 (CO2 TENSION) 31 MMHG (35-45); PO2 (O2 TENSION) 90 MMHG (79-93); pH 7.46 (7.37-7.43)
[2016-08-14 05:25] LABS: ALLENS TEST Pos; HEMOBLOGIN CONTENT 9.3 G/DL (12-16); METHEMOGLOBIN 0.2 % (0-3); MODE CMV; O2 CONTENT 12.7 VOL% (18-24); OPERATOR ID 17370; SAMPLE Arterial; TIDAL VOLUME 400 ML
[2016-08-15 03:17] LABS: ALLENS TEST Pos; BE (BASE EXCESS) 4.3 MEQ/L (0 +/- 2.5); CARBOXYHEMOGLOBIN 0.9 % (0-3); HCO3 (ACTUAL BICARBONATE) 27.2 MEQ/L (23-27); HEMOBLOGIN CONTENT 8.7 G/DL (12-16); INSTRUMENT SERIAL # 8083; METHEMOGLOBIN 0.2 % (0-3); MODE CMV; OPERATOR ID 31061; PCO2 (CO2 TENSION) 34 MMHG (35-45); PO2 (O2 TENSION) 96 MMHG (79-93); SAMPLE Arterial; TIDAL VOLUME 400 ML; pH 7.52 (7.37-7.43)
[2016-08-15 04:56] LABS: BASOPHILS 0.1 %; BASOPHILS ABSOLUTE 0.01 10/3/uL (0.0-0.16); EOSINOPHILS 0.2 %; EOSINOPHILS ABSOLUTE 0.02 10/3/uL (0.0-0.53); HEMATOCRIT 26.5 % (36.0-48.0); HEMOGLOBIN 8.8 g/dL (12.0-16.0); IMMATURE GRANULOCYTES 0.7 %; IMMATURE GRANULOCYTES ABSOLUTE 0.09 10/3/uL (0.0-0.11); LYMPHOCYTES 8.7 %; LYMPHOCYTES ABSOLUTE 1.09 10/3/uL (0.67-4.30); MEAN CORPUS HGB CONC 33.2 g/dL (32.0-36.0); MEAN CORPUSCULAR HEMOGLOB 28.6 pg (26.0-34.0); MEAN PLATELET VOLUME 9.8 fL (9.2-13.0); MONOCYTES 10.1 %; MONOCYTES ABSOLUTE 1.27 10/3/uL (0.21-1.20); NEUTROPHILS 80.2 %; NEUTROPHILS ABSOLUTE 10.11 10/3/uL (2.02-8.40); NUCLEATED RED BLOOD CELLS 0.6 /100WBC (0-0); PLATELET COUNT 280 10/3/uL (150-400); RBC DISTRIBUTION WIDTH 17.4 % (12.0-16.0); RED CELL COUNT 3.08 10/6/uL (4.0-5.6); WHITE BLOOD CELLS 12.6 10/3/uL (4.5-10.5)
[2016-08-15 04:57] LABS: MANUAL DIFF NO %
[2016-08-15 05:02] LABS: BUN (BLOOD UREA NITROGEN) 11 MG/DL (6-23); CALCIUM, SERUM 8.9 MG/DL (8.5-10.4); CHLORIDE, SERUM 101 MMOL/L (96-112); CO2 (CARBON DIOXIDE) 26 MMOL/L (24-34); CREATININE 0.39 MG/DL (0.55-1.02); GFR AFRICAN AMERICAN 114 ML/MIN (>=60); GFR NON AFRICAN AMERICAN 99 ML/MIN (>=60); GLUCOSE, SERUM 142 MG/DL (60-99); PHOSPHORUS, SERUM 2.1 MG/DL (2.5-4.5); POTASSIUM, SERUM 3.1 MMOL/L (3.5-5.3); SODIUM, SERUM 138 MMOL/L (135-148)
[2016-08-15 05:34] LABS: PROCALCITONIN 0.33 ng/mL (<0.5)
[2016-08-16 05:12] LABS: BASOPHILS 0.1 %; BASOPHILS ABSOLUTE 0.01 10/3/uL (0.0-0.16); EOSINOPHILS 0.1 %; EOSINOPHILS ABSOLUTE 0.01 10/3/uL (0.0-0.53); HEMATOCRIT 26.2 % (36.0-48.0); HEMOGLOBIN 8.8 g/dL (12.0-16.0); IMMATURE GRANULOCYTES 0.5 %; IMMATURE GRANULOCYTES ABSOLUTE 0.08 10/3/uL (0.0-0.11); LYMPHOCYTES ABSOLUTE 1.33 10/3/uL (0.67-4.30); MEAN CORPUS HGB CONC 33.6 g/dL (32.0-36.0); MEAN CORPUSCULAR HEMOGLOB 28.9 pg (26.0-34.0); MEAN CORPUSCULAR VOLUME 86.2 fL (80-100); MEAN PLATELET VOLUME 9.8 fL (9.2-13.0); MONOCYTES 14.6 %; MONOCYTES ABSOLUTE 2.41 10/3/uL (0.21-1.20); NEUTROPHILS 76.7 %; NUCLEATED RED BLOOD CELLS 0.4 /100WBC (0-0); PLATELET COUNT 277 10/3/uL (150-400); RBC DISTRIBUTION WIDTH 16.9 % (12.0-16.0); RED CELL COUNT 3.04 10/6/uL (4.0-5.6); WHITE BLOOD CELLS 16.5 10/3/uL (4.5-10.5)
[2016-08-16 05:13] LABS: MANUAL DIFF NO %
[2016-08-16 05:28] LABS: BUN (BLOOD UREA NITROGEN) 12 MG/DL (6-23); CALCIUM, SERUM 8.4 MG/DL (8.5-10.4); CHLORIDE, SERUM 96 MMOL/L (96-112); CREATININE 0.44 MG/DL (0.55-1.02); GFR AFRICAN AMERICAN 110 ML/MIN (>=60); GFR NON AFRICAN AMERICAN 95 ML/MIN (>=60); GLUCOSE, SERUM 139 MG/DL (60-99); SODIUM, SERUM 136 MMOL/L (135-148)
[2016-08-16 05:31] LABS: CO2 (CARBON DIOXIDE) 39 MMOL/L (24-34); POTASSIUM, SERUM 2.6 MMOL/L (3.5-5.3)
[2016-08-16 13:27] LABS: PHOSPHORUS, SERUM 3.5 MG/DL (2.5-4.5); POTASSIUM, SERUM 5.3 MMOL/L (3.5-5.3)
[2016-08-17 04:14] LABS: CHLORIDE, SERUM 100 MMOL/L (96-112); CREATININE 0.46 MG/DL (0.55-1.02); GFR AFRICAN AMERICAN 108 ML/MIN (>=60); GFR NON AFRICAN AMERICAN 93 ML/MIN (>=60); POTASSIUM, SERUM 4.5 MMOL/L (3.5-5.3); SODIUM, SERUM 140 MMOL/L (135-148)
[2016-08-17 04:16] LABS: BUN (BLOOD UREA NITROGEN) 22 MG/DL (6-23); CO2 (CARBON DIOXIDE) 33 MMOL/L (24-34); GLUCOSE, SERUM 185 MG/DL (60-99); PHOSPHORUS, SERUM 2.1 MG/DL (2.5-4.5)
[2016-08-17 04:25] LABS: BASOPHILS 0.1 %; BASOPHILS ABSOLUTE 0.01 10/3/uL (0.0-0.16); EOSINOPHILS 0 %; HEMATOCRIT 27.9 % (36.0-48.0); HEMOGLOBIN 9.2 g/dL (12.0-16.0); IMMATURE GRANULOCYTES 1.2 %; IMMATURE GRANULOCYTES ABSOLUTE 0.15 10/3/uL (0.0-0.11); LYMPHOCYTES 4.6 %; LYMPHOCYTES ABSOLUTE 0.58 10/3/uL (0.67-4.30); MEAN CORPUSCULAR HEMOGLOB 28.8 pg (26.0-34.0); MEAN CORPUSCULAR VOLUME 87.2 fL (80-100); MEAN PLATELET VOLUME 10.4 fL (9.2-13.0); MONOCYTES 5.8 %; MONOCYTES ABSOLUTE 0.73 10/3/uL (0.21-1.20); NEUTROPHILS 88.3 %; NEUTROPHILS ABSOLUTE 11.22 10/3/uL (2.02-8.40); NUCLEATED RED BLOOD CELLS 0.3 /100WBC (0-0); PLATELET COUNT 328 10/3/uL (150-400); RBC DISTRIBUTION WIDTH 17.3 % (12.0-16.0); WHITE BLOOD CELLS 12.7 10/3/uL (4.5-10.5)
[2016-08-17 04:26] LABS: MANUAL DIFF NO %
[2016-08-17 10:57] LABS: ASCORBIC ACID (UR NOT ORDER) NEG (NEG); BILIRUBIN, URINE NEGATIVE (NEG); KETONE, URINE NEGATIVE (NEG); LEUKOCYTE ESTERASE(NOT OR TRACE (NEG); WBC (NOT ORDERED) (RFLEX) 4 (0-5)
[2016-08-18 04:55] LABS: BASOPHILS 0.1 %; BASOPHILS ABSOLUTE 0.01 10/3/uL (0.0-0.16); EOSINOPHILS 0 %; HEMATOCRIT 29.6 % (36.0-48.0); HEMOGLOBIN 9.5 g/dL (12.0-16.0); IMMATURE GRANULOCYTES 0.9 %; IMMATURE GRANULOCYTES ABSOLUTE 0.15 10/3/uL (0.0-0.11); LYMPHOCYTES 1.2 %; LYMPHOCYTES ABSOLUTE 0.21 10/3/uL (0.67-4.30); MEAN CORPUS HGB CONC 32.1 g/dL (32.0-36.0); MEAN CORPUSCULAR HEMOGLOB 28.1 pg (26.0-34.0); MEAN CORPUSCULAR VOLUME 87.6 fL (80-100); MONOCYTES 6.1 %; MONOCYTES ABSOLUTE 1.06 10/3/uL (0.21-1.20); NEUTROPHILS 91.7 %; NUCLEATED RED BLOOD CELLS 0.4 /100WBC (0-0); PLATELET COUNT 387 10/3/uL (150-400); RBC DISTRIBUTION WIDTH 17.3 % (12.0-16.0); RED CELL COUNT 3.38 10/6/uL (4.0-5.6); WHITE BLOOD CELLS 17.4 10/3/uL (4.5-10.5)
[2016-08-18 04:56] LABS: MANUAL DIFF NO %
[2016-08-18 05:12] LABS: CALCIUM, SERUM 8.5 MG/DL (8.5-10.4); CHLORIDE, SERUM 101 MMOL/L (96-112); CO2 (CARBON DIOXIDE) 35 MMOL/L (24-34); CREATININE 0.49 MG/DL (0.55-1.02); GFR AFRICAN AMERICAN 106 ML/MIN (>=60); GFR NON AFRICAN AMERICAN 91 ML/MIN (>=60); GLUCOSE, SERUM 181 MG/DL (60-99); SODIUM, SERUM 142 MMOL/L (135-148)
[2016-08-18 05:13] LABS: BUN (BLOOD UREA NITROGEN) 32 MG/DL (6-23); PHOSPHORUS, SERUM 3.2 MG/DL (2.5-4.5); POTASSIUM, SERUM 2.8 MMOL/L (3.5-5.3)
[2016-08-19 04:34] LABS: BUN (BLOOD UREA NITROGEN) 35 MG/DL (6-23); CALCIUM, SERUM 9.2 MG/DL (8.5-10.4); CHLORIDE, SERUM 107 MMOL/L (96-112); CREATININE 0.42 MG/DL (0.55-1.02); GFR AFRICAN AMERICAN 111 ML/MIN (>=60); GFR NON AFRICAN AMERICAN 96 ML/MIN (>=60); POTASSIUM, SERUM 4.4 MMOL/L (3.5-5.3); SODIUM, SERUM 144 MMOL/L (135-148)
[2016-08-19 04:36] LABS: CO2 (CARBON DIOXIDE) 30 MMOL/L (24-34); GLUCOSE, SERUM 108 MG/DL (60-99); PHOSPHORUS, SERUM 2.1 MG/DL (2.5-4.5)
[2016-08-19 04:50] LABS: BASOPHILS 0 %; BASOPHILS ABSOLUTE 0.01 10/3/uL (0.0-0.16); EOSINOPHILS 0 %; HEMATOCRIT 26.8 % (36.0-48.0); HEMOGLOBIN 8.7 g/dL (12.0-16.0); IMMATURE GRANULOCYTES 1.3 %; IMMATURE GRANULOCYTES ABSOLUTE 0.26 10/3/uL (0.0-0.11); LYMPHOCYTES 1.5 %; LYMPHOCYTES ABSOLUTE 0.31 10/3/uL (0.67-4.30); MEAN CORPUS HGB CONC 32.5 g/dL (32.0-36.0); MEAN CORPUSCULAR HEMOGLOB 28.3 pg (26.0-34.0); MEAN CORPUSCULAR VOLUME 87.3 fL (80-100); MEAN PLATELET VOLUME 10.3 fL (9.2-13.0); MONOCYTES 8.5 %; MONOCYTES ABSOLUTE 1.76 10/3/uL (0.21-1.20); NEUTROPHILS 88.7 %; NEUTROPHILS ABSOLUTE 18.37 10/3/uL (2.02-8.40); NUCLEATED RED BLOOD CELLS 0.4 /100WBC (0-0); PLATELET COUNT 407 10/3/uL (150-400); RBC DISTRIBUTION WIDTH 17.5 % (12.0-16.0); RED CELL COUNT 3.07 10/6/uL (4.0-5.6); WHITE BLOOD CELLS 20.7 10/3/uL (4.5-10.5)
[2016-08-19 04:51] LABS: MANUAL DIFF NO %
[2016-08-19 05:59] LABS: PROCALCITONIN 0.08 ng/mL (<0.5)
[2016-08-19 10:36] LABS: SGPT(ALT) 34 U/L (5-65); TOTAL BILIRUBIN 0.3 MG/DL (0-1.2); TOTAL PROTEIN 5.6 G/DL (6.0-8.5)
[2016-08-19 10:37] LABS: A/G RATIO 0.9 (0.7-1.9); ALBUMIN 2.6 G/DL (3.5-5.0); ALKALINE PHOSPHATASE 107 U/L (45-117)
[2016-08-19 10:47] LABS: SGOT(AST) 40 U/L (5-40)
[2016-08-20 03:59] LABS: BASOPHILS 0 %; BASOPHILS ABSOLUTE 0.01 10/3/uL (0.0-0.16); EOSINOPHILS 0 %; HEMATOCRIT 26.1 % (36.0-48.0); HEMOGLOBIN 8.4 g/dL (12.0-16.0); LYMPHOCYTES 8.4 %; LYMPHOCYTES ABSOLUTE 1.71 10/3/uL (0.67-4.30); MEAN CORPUS HGB CONC 32.2 g/dL (32.0-36.0); MEAN CORPUSCULAR HEMOGLOB 28.4 pg (26.0-34.0); MEAN CORPUSCULAR VOLUME 88.2 fL (80-100); MEAN PLATELET VOLUME 10.4 fL (9.2-13.0); MONOCYTES 5.8 %; MONOCYTES ABSOLUTE 1.19 10/3/uL (0.21-1.20); NEUTROPHILS 84.8 %; NEUTROPHILS ABSOLUTE 17.33 10/3/uL (2.02-8.40); NUCLEATED RED BLOOD CELLS 0.6 /100WBC (0-0); PLATELET COUNT 425 10/3/uL (150-400); RBC DISTRIBUTION WIDTH 17.6 % (12.0-16.0); RED CELL COUNT 2.96 10/6/uL (4.0-5.6); WHITE BLOOD CELLS 20.4 10/3/uL (4.5-10.5)
[2016-08-20 04:01] LABS: ALBUMIN 2.3 G/DL (3.5-5.0); BUN (BLOOD UREA NITROGEN) 39 MG/DL (6-23); CALCIUM, SERUM 8.2 MG/DL (8.5-10.4); CHLORIDE, SERUM 107 MMOL/L (96-112); CO2 (CARBON DIOXIDE) 31 MMOL/L (24-34); CREATININE 0.34 MG/DL (0.55-1.02); GFR AFRICAN AMERICAN 119 ML/MIN (>=60); GFR NON AFRICAN AMERICAN 103 ML/MIN (>=60); GLUCOSE, SERUM 114 MG/DL (60-99); MANUAL DIFF NO %; POTASSIUM, SERUM 3.4 MMOL/L (3.5-5.3); SODIUM, SERUM 146 MMOL/L (135-148)
[2016-08-21 03:34] LABS: BE (BASE EXCESS) 7.1 MEQ/L (0 +/- 2.5); CARBOXYHEMOGLOBIN 0.8 % (0-3); HCO3 (ACTUAL BICARBONATE) 28.7 MEQ/L (23-27); INSTRUMENT SERIAL # 8083; METHEMOGLOBIN 0.2 % (0-3); MODE CMV; O2 CONTENT 12.5 VOL% (18-24); OPERATOR ID 17370; PCO2 (CO2 TENSION) 30 MMHG (35-45); PO2 (O2 TENSION) 107 MMHG (79-93); SAMPLE Arterial; TIDAL VOLUME 400 ML
[2016-08-21 04:00] LABS: CALCIUM, SERUM 8.2 MG/DL (8.5-10.4); CHLORIDE, SERUM 108 MMOL/L (96-112); CO2 (CARBON DIOXIDE) 34 MMOL/L (24-34); CREATININE 0.36 MG/DL (0.55-1.02); GFR AFRICAN AMERICAN 117 ML/MIN (>=60); GFR NON AFRICAN AMERICAN 101 ML/MIN (>=60); POTASSIUM, SERUM 3.4 MMOL/L (3.5-5.3); SODIUM, SERUM 146 MMOL/L (135-148)
[2016-08-21 04:01] LABS: BUN (BLOOD UREA NITROGEN) 35 MG/DL (6-23)
[2016-08-21 04:02] LABS: GLUCOSE, SERUM 87 MG/DL (60-99)
[2016-08-21 04:04] LABS: BASOPHILS 0 %; BASOPHILS ABSOLUTE 0.01 10/3/uL (0.0-0.16); EOSINOPHILS 0.6 %; EOSINOPHILS ABSOLUTE 0.14 10/3/uL (0.0-0.53); HEMATOCRIT 26.7 % (36.0-48.0); HEMOGLOBIN 8.6 g/dL (12.0-16.0); IMMATURE GRANULOCYTES 0.9 %; LYMPHOCYTES 6.6 %; LYMPHOCYTES ABSOLUTE 1.49 10/3/uL (0.67-4.30); MEAN CORPUS HGB CONC 32.2 g/dL (32.0-36.0); MEAN CORPUSCULAR HEMOGLOB 28.7 pg (26.0-34.0); MEAN PLATELET VOLUME 10.7 fL (9.2-13.0); MONOCYTES 4.2 %; MONOCYTES ABSOLUTE 0.94 10/3/uL (0.21-1.20); NEUTROPHILS 87.7 %; NEUTROPHILS ABSOLUTE 19.81 10/3/uL (2.02-8.40); NUCLEATED RED BLOOD CELLS 0.7 /100WBC (0-0); PLATELET COUNT 480 10/3/uL (150-400); RBC DISTRIBUTION WIDTH 17.7 % (12.0-16.0); WHITE BLOOD CELLS 22.6 10/3/uL (4.5-10.5)
[2016-08-21 04:05] LABS: MANUAL DIFF NO %
[2016-08-21 04:46] LABS: PROCALCITONIN 0.07 ng/mL (<0.5)
[2016-08-22 04:03] LABS: BE (BASE EXCESS) 0.6 MEQ/L (0 +/- 2.5); INSTRUMENT SERIAL # 8083; PCO2 (CO2 TENSION) 33 MMHG (35-45); PO2 (O2 TENSION) 82 MMHG (79-93); pH 7.48 (7.37-7.43)
[2016-08-22 04:04] LABS: HEMOBLOGIN CONTENT 8.6 G/DL (12-16); METHEMOGLOBIN 0.3 % (0-3); MODE CMV; O2 CONTENT 11.6 VOL% (18-24); SAMPLE Arterial; TIDAL VOLUME 400 ML
[2016-08-22 04:21] LABS: BASOPHILS 0.1 %; BASOPHILS ABSOLUTE 0.01 10/3/uL (0.0-0.16); EOSINOPHILS 1.9 %; EOSINOPHILS ABSOLUTE 0.36 10/3/uL (0.0-0.53); HEMATOCRIT 27.2 % (36.0-48.0); HEMOGLOBIN 8.7 g/dL (12.0-16.0); IMMATURE GRANULOCYTES 0.7 %; IMMATURE GRANULOCYTES ABSOLUTE 0.14 10/3/uL (0.0-0.11); LYMPHOCYTES 4.4 %; LYMPHOCYTES ABSOLUTE 0.83 10/3/uL (0.67-4.30); MANUAL DIFF NO %; MEAN CORPUSCULAR HEMOGLOB 28.7 pg (26.0-34.0); MEAN CORPUSCULAR VOLUME 89.8 fL (80-100); MEAN PLATELET VOLUME 11.2 fL (9.2-13.0); MONOCYTES 9.6 %; MONOCYTES ABSOLUTE 1.84 10/3/uL (0.21-1.20); NEUTROPHILS 83.3 %; NUCLEATED RED BLOOD CELLS 0.6 /100WBC (0-0); PLATELET COUNT 515 10/3/uL (150-400); RBC DISTRIBUTION WIDTH 17.8 % (12.0-16.0); RED CELL COUNT 3.03 10/6/uL (4.0-5.6); WHITE BLOOD CELLS 19.1 10/3/uL (4.5-10.5)
[2016-08-22 04:23] LABS: CALCIUM, SERUM 8.5 MG/DL (8.5-10.4); CHLORIDE, SERUM 110 MMOL/L (96-112); CREATININE 0.38 MG/DL (0.55-1.02); GFR AFRICAN AMERICAN 115 ML/MIN (>=60); GFR NON AFRICAN AMERICAN 99 ML/MIN (>=60); GLUCOSE, SERUM 94 MG/DL (60-99); POTASSIUM, SERUM 3.4 MMOL/L (3.5-5.3); SODIUM, SERUM 145 MMOL/L (135-148)
[2016-08-22 04:25] LABS: BUN (BLOOD UREA NITROGEN) 29 MG/DL (6-23); CO2 (CARBON DIOXIDE) 28 MMOL/L (24-34)
[2016-08-23 05:43] LABS: CHLORIDE, SERUM 116 MMOL/L (96-112); CO2 (CARBON DIOXIDE) 25 MMOL/L (24-34); CREATININE 0.38 MG/DL (0.55-1.02); GFR AFRICAN AMERICAN 115 ML/MIN (>=60); GFR NON AFRICAN AMERICAN 99 ML/MIN (>=60); GLUCOSE, SERUM 103 MG/DL (60-99); PHOSPHORUS, SERUM 2.8 MG/DL (2.5-4.5); SODIUM, SERUM 148 MMOL/L (135-148)
[2016-08-23 05:44] LABS: BUN (BLOOD UREA NITROGEN) 33 MG/DL (6-23); CALCIUM, SERUM 7.1 MG/DL (8.5-10.4)
[2016-08-23 10:44] LABS: BASOPHILS 0.1 %; BASOPHILS ABSOLUTE 0.01 10/3/uL (0.0-0.16); EOSINOPHILS 1.7 %; HEMATOCRIT 25.2 % (36.0-48.0); IMMATURE GRANULOCYTES 0.7 %; IMMATURE GRANULOCYTES ABSOLUTE 0.12 10/3/uL (0.0-0.11); LYMPHOCYTES 4.4 %; LYMPHOCYTES ABSOLUTE 0.78 10/3/uL (0.67-4.30); MEAN CORPUS HGB CONC 31.7 g/dL (32.0-36.0); MEAN CORPUSCULAR HEMOGLOB 28.4 pg (26.0-34.0); MEAN CORPUSCULAR VOLUME 89.4 fL (80-100); MEAN PLATELET VOLUME 11.2 fL (9.2-13.0); MONOCYTES 11.7 %; MONOCYTES ABSOLUTE 2.06 10/3/uL (0.21-1.20); NEUTROPHILS 81.4 %; NEUTROPHILS ABSOLUTE 14.29 10/3/uL (2.02-8.40); PLATELET COUNT 594 10/3/uL (150-400); RBC DISTRIBUTION WIDTH 18.1 % (12.0-16.0); RED CELL COUNT 2.82 10/6/uL (4.0-5.6); WHITE BLOOD CELLS 17.6 10/3/uL (4.5-10.5)
[2016-08-23 10:45] LABS: MANUAL DIFF NO %
[2016-08-24 05:29] LABS: HEMATOCRIT 26.8 % (36.0-48.0); HEMOGLOBIN 8.4 g/dL (12.0-16.0); MEAN CORPUS HGB CONC 31.3 g/dL (32.0-36.0); MEAN CORPUSCULAR HEMOGLOB 28.4 pg (26.0-34.0); MEAN CORPUSCULAR VOLUME 90.5 fL (80-100); MEAN PLATELET VOLUME 11.2 fL (9.2-13.0); PLATELET COUNT 676 10/3/uL (150-400); RBC DISTRIBUTION WIDTH 18.1 % (12.0-16.0); RED CELL COUNT 2.96 10/6/uL (4.0-5.6); WHITE BLOOD CELLS 19.7 10/3/uL (4.5-10.5)
[2016-08-24 05:32] LABS: MANUAL DIFF YES %
[2016-08-24 05:35] LABS: BUN (BLOOD UREA NITROGEN) 33 MG/DL (6-23); CHLORIDE, SERUM 112 MMOL/L (96-112); CO2 (CARBON DIOXIDE) 26 MMOL/L (24-34); CREATININE 0.41 MG/DL (0.55-1.02); GFR AFRICAN AMERICAN 112 ML/MIN (>=60); GFR NON AFRICAN AMERICAN 97 ML/MIN (>=60); POTASSIUM, SERUM 3.2 MMOL/L (3.5-5.3); SODIUM, SERUM 145 MMOL/L (135-148)
[2016-08-24 05:37] LABS: CALCIUM, SERUM 8.3 MG/DL (8.5-10.4); GLUCOSE, SERUM 50 MG/DL (60-99)
[2016-08-24 05:48] LABS: BAND NEUTROPHILS 5 %; LYMPHOCYTES 4 %; LYMPHOCYTES ABSOLUTE (CALC) 0.79 10/3/uL (0.67-4.30); MONOCYTES 9 %; MONOCYTES ABSOLUTE (CALC) 1.77 10/3/uL (0.21-1.20); NEUTROPHILS ABSOLUTE (CALC) 17.14 10/3/uL (2.02-8.40); SEGMENTED NEUTROPHIL (0) 82 %; TOTAL NUCLEATED CELLS 100
[2016-08-24 05:49] LABS: ANISOCYTOSIS 1+ (5-10/OIF) (0-5/OIF); PLATELET ESTIMATE INC (ADEQUATE); POLYCHROMASIA 1+ (2-5/OIF) (0-1/OIF)
[2016-08-24 10:09] LABS: PROCALCITONIN 0.59 ng/mL (<0.5)
== END 2016-08-26 12:16 | disposition expired | DRG 207 ==
LOC: MIC 10:29 → 4SO 08-25 15:10
PROVIDERS: Internal Medicine Critical Care Medicine; Internal Medicine Pulmonary Disease
PROC: 5A1955Z Respiratory Ventilation, Greater than 96 Consecutive Hours (ICD-10-PCS; principal; 2016-08-12)
PROC: 0BH17EZ Insertion of Endotracheal Airway into Trachea, Via Natural or Artificial Opening (ICD-10-PCS; 2016-08-12)
DX: J96.01 Acute respiratory failure with hypoxia (principal); J69.0 Pneumonitis due to inhalation of food and vomit; J15.212 Pneumonia due to Methicillin resistant Staphylococcus aureus; J15.5 Pneumonia due to Escherichia coli; J90 Pleural effusion, not elsewhere classified; E87.3 Alkalosis; B48.8 Other specified mycoses; J95.851 Ventilator associated pneumonia; J44.0 Chronic obstructive pulmonary disease with (acute) lower respiratory infection; C85.90 Non-Hodgkin lymphoma, unspecified, unspecified site; N39.0 Urinary tract infection, site not specified; E46 Unspecified protein-calorie malnutrition; C85.20 Mediastinal (thymic) large B-cell lymphoma, unspecified site; Z68.1 Body mass index [BMI] 19.9 or less, adult; B37.49 Other urogenital candidiasis; Z66 Do not resuscitate; Z51.5 Encounter for palliative care; Z99.81 Dependence on supplemental oxygen; I48.2 Chronic atrial fibrillation; F03.90 Unspecified dementia, unspecified severity, without behavioral disturbance, psychotic disturbance, mood disturbance, and anxiety; J96.02 Acute respiratory failure with hypercapnia; Z87.440 Personal history of urinary (tract) infections; Z98.890 Other specified postprocedural states; Z90.49 Acquired absence of other specified parts of digestive tract; Z90.710 Acquired absence of both cervix and uterus; Z88.5 Allergy status to narcotic agent; Z82.49 Family history of ischemic heart disease and other diseases of the circulatory system; Z82.3 Family history of stroke; Z80.8 Family history of malignant neoplasm of other organs or systems; Y84.8 Other medical procedures as the cause of abnormal reaction of the patient, or of later complication, without mention of misadventure at the time of the procedure; G89.29 Other chronic pain; Y95 Nosocomial condition; B96.5 Pseudomonas (aeruginosa) (mallei) (pseudomallei) as the cause of diseases classified elsewhere; D64.9 Anemia, unspecified; E11.65 Type 2 diabetes mellitus with hyperglycemia; I35.2 Nonrheumatic aortic (valve) stenosis with insufficiency
CPT/HCPCS: 31720; 36600; 71010; 71250; 74000; 80048; 80053; 80069; 80202; 81001; 82040; 82140; 82805; 82962; 83735; 84100; 84132; 84145; 84439; 84443; 85025; 87040; 87070; 87077; 87086; 87186; 87205; 87641; 94002; 94003; 94640; 94660; A9270-GY; C9113; J1120; J1170; J1940; J2185; J2543; J2920; J3010; J3370; J3475; P9047